=== PATIENT | female | born 1950 | race Caucasian/White ===

== ENCOUNTER 2017-12-21 10:28 | Day surgery (SDC) | payer OTHER ==
[~2017-12-21] VITALS: Ht 149.9 cm; Wt 49.6 kg
[~2017-12-21 10:28] MED LIST: ESCI5 PO; FURO20 PO; POTCHL10ER PO
[2018-06-05] MEDS ORDERED: CITA20 PO (13:42)
[2018-06-05] MEDS ORDERED: ALPR.25 PO (13:47)
== END 2017-12-21 12:02 | disposition home or self-care (01) ==
LOC: ORSCSDS 10:28
PROVIDERS: Anesthesiology
PROC: 3E0R33Z Introduction of Anti-inflammatory into Spinal Canal, Percutaneous Approach (ICD-10-PCS; principal; 2017-12-21 11:30)
DX: M51.16 Intervertebral disc disorders with radiculopathy, lumbar region (principal); F32.9 Major depressive disorder, single episode, unspecified; F17.210 Nicotine dependence, cigarettes, uncomplicated; Z79.899 Other long term (current) drug therapy
CPT/HCPCS: J1040

== ENCOUNTER → 2019-08-09 | Outpatient (CLI) | payer OTHER ==
[~2019-08-09] MED LIST changes: +ALPR.25 PO; +CITA20 PO
[2019-08-10 08:59] LABS: U Amphetamine Screen Not Detected; U Barbituate Screen Not Detected; U Benzodiazapine Screen Not Detected; U Buprenorphine Screen Not Detected; U Cannabinoids Screen Not Detected; U Cocaine Screen Not Detected; U Methadone Screen Not Detected; U Methamphetamine Screen Not Detected; U Opiates Screen DETECTED; U Oxycodone Screen Not Detected; U Phencyclidine Screen Not Detected; U Propoxyphene Screen Not Detected
== END | disposition home or self-care (01) ==
LOC: LAB SHORT 16:08 → LAB 16:08
PROVIDERS: Internal Medicine
DX: Z51.81 Encounter for therapeutic drug level monitoring (principal); Z79.891 Long term (current) use of opiate analgesic
CPT/HCPCS: G0480

== ENCOUNTER → 2019-09-19 | Outpatient (CLI) | payer OTHER | END | disposition home or self-care (01) | LOC: LAB SHORT 07:00 → LAB 07:00 → LAB FUT 08-30 11:00 | PROVIDERS: Internal Medicine | DX: Z00.01 Encounter for general adult medical examination with abnormal findings (principal) | CPT/HCPCS: 81050 ==

== ENCOUNTER 2019-11-27 09:32 | Day surgery (SDC) | payer OTHER ==
[~2019-11-27] VITALS: Ht 149.9 cm; Wt 45.6 kg
[~2019-11-27 09:32] MED LIST changes: +HYDR1TAB94 PO; +Sudogest30 MG PO; +VENL75ER PO
== END 2019-11-27 11:40 | disposition home or self-care (01) ==
LOC: ORSCSDS 09:32
PROVIDERS: Surgery
PROC: 0DJD8ZZ Inspection of Lower Intestinal Tract, Via Natural or Artificial Opening Endoscopic (ICD-10-PCS; principal; 2019-11-27 10:45)
DX: Z12.11 Encounter for screening for malignant neoplasm of colon (principal); Z86.010 Personal history of colon polyps; F17.210 Nicotine dependence, cigarettes, uncomplicated; F41.8 Other specified anxiety disorders; Z79.899 Other long term (current) drug therapy
CPT/HCPCS: J2704; J7120

== ENCOUNTER 2023-02-07 13:17 | Day surgery (SDC) | payer OTHER ==
[~2023-02-07] VITALS: Ht 149.9 cm; Wt 47.8 kg
[2023-02-07] MEDS ORDERED: DULOXETINE HCL60 MG PO (13:54)
[2023-02-07] MEDS ORDERED: DULO30 PO (13:55)
[2023-02-07] MEDS ORDERED: MELATONIN PO (13:55)
[2023-02-07] MEDS ORDERED: ALPR.5 PO (13:57)
--- NOTE | 2023-02-07 14:16 | NUR ---
02/07/23 1416 Garima Lainez BLOCK TO Rene HAND PER ORDERS BY DR JENKINS
== END 2023-02-07 16:06 | disposition home or self-care (01) ==
LOC: ORSCSDS 13:17
PROVIDERS: Orthopaedic Surgery
PROC: 01N50ZZ Release Median Nerve, Open Approach (ICD-10-PCS; principal; 2023-02-07 14:30)
DX: G56.02 Carpal tunnel syndrome, left upper limb (principal); F17.210 Nicotine dependence, cigarettes, uncomplicated; Z79.899 Other long term (current) drug therapy
CPT/HCPCS: A9270; J0690; J2704; J3010; J7120